=== PATIENT | female | born 1960 | race Caucasian/White ===

== ENCOUNTER 2023-06-02 09:58 | Inpatient (IN) | payer MEDICAID ==
[~2023-06-02] VITALS: Ht 167.6 cm; Wt 92.7 kg
[2023-06-02] VITALS (20 sets, daily range): BP systolic 68–159; PULSE 73–101; RESP 20–25; TEMP 96.9–98.1; O2SAT 91–100
[2023-06-02] MEDS ORDERED: ROCURONIUM BROMIDE 10 MG/ML (ZEMURON) IV ONE (09:59)
[2023-06-02] MEDS ORDERED: SUCCINYLCHOLINE CHLORIDE 20 MG/ML(QUELICIN) IVP ONE (09:59)
[2023-06-02] MEDS ORDERED: NALOXONE HCL 2 MG/2 ML SYR ONE (10:28)
[2023-06-02] MEDS ORDERED: PROPOFOL DRIP 100 ML IV ONE (10:30)
[2023-06-02] MEDS ORDERED: VECURONIUM BROMIDE 10 MG/VIAL (NORCURON) IVP ONE (10:30)
[2023-06-02] MEDS ORDERED: fentaNYL CITRATE/PF 100 MCG/2 ML AMP IVP ONE (10:30)
[2023-06-02] MEDS ORDERED: ETOMIDATE 20 MG/ 10 ML VIAL (AMIDATE) IVP ONE (10:30)
[2023-06-02] MEDS ORDERED: NOREPINEPHRINE BITARTRATE 4 MG in NS 246 ML IV ONE (11:00)
[2023-06-02] MEDS ORDERED: NACL 0.9% 3,000 ML IV ONE (11:00)
[2023-06-02 11:03] LABS: BASOPHILS % (AUTO) 0.1 % (0.0-2.0); HEMOGLOBIN 16.7 g/dL (12.0-16.0); LYMPHOCYTES # (AUTO) 0.2 K/uL (1.0-5.5); LYMPHOCYTES % (AUTO) 1.7 % (20.5-51.5); MEAN CORPUSCULAR HEMOGLOBIN 31 pg (27-31); MEAN CORPUSCULAR HGB CONC 31 % (32-36); MEAN CORPUSCULAR VOLUME 102 fL (79.0-98.0); MONOCYTES # (AUTO) 0.5 K/uL (0.0-1.0); MONOCYTES % (AUTO) 3.7 % (1.7-9.3); NEUTROPHILS # (AUTO) 13.4 K/uL (1.8-7.7); NEUTROPHILS % (AUTO) 94.5 % (40.0-70.0); PLATELET COUNT (AUTO) 72 K/uL (130-430); RED BLOOD CELL COUNT(AUTO) 5.31 MIL/uL (4.2-6.2); RED CELL DISTRIBUTION WIDTH 15.1 % (9.0-15.0); WHITE BLOOD COUNT (AUTO) 14.2 K/uL (4.8-10.8)
[2023-06-02 11:19] LABS: INR 1.3 (0.8-1.2); PROTHROMBIN TIME 13.4 SECS (9.5-12.5)
[2023-06-02 11:20] LABS: ANION GAP 11 (5-15); CALCIUM 8.8 mg/dL (8.4-11.0); CARBON DIOXIDE 27 mmol/L (23-29); CHLORIDE 98 mmol/L (98-107); CREATININE 1.57 mg/dL (0.55-1.30); GFR AFRICAN AMERICAN 43 mL/min (>90); GLUCOSE 93 mg/dL (74-106); POTASSIUM 3.6 mmol/L (3.5-5.1); SODIUM SERUM 136 mmol/L (136-145); UREA NITROGEN, BLOOD 25 mg/dL (8-21)
[2023-06-02 11:20] LABS: ABG O2 SAT% ESTIMATE 91.8 % (94.0-100.0); BLOOD GAS BASE EXCESS -5.1 mmol/L (-3.0-3.0); BLOOD GAS HCO3 22.4 mmol/L (21.0-27.0); BLOOD GAS PCO2 51.1 mmHg (35.0-45.0); BLOOD GAS PO2 71.4 mmHg (75.0-100.0)
[2023-06-02 11:21] LABS: ALLEN'S TEST POSITIVE (P)
[2023-06-02 11:21] LABS: GFR NON AFRICAN-AMERICAN 35 mL/min (>90)
[2023-06-02 11:39] LABS: ANISOCYTOSIS 1+
[2023-06-02 11:51] LABS: ALANINE AMINOTRANSFERASE 30 U/L (12-78); ALBUMIN 2.9 g/dL (3.4-4.8); ASPARTATE AMINOTRANSFERASE 87 U/L (10-37); CREATINE KINASE, TOTAL 1282 U/L (26-192); SALICYLATE 5 mg/dL (3-30); TOTAL BILIRUBIN 0.3 mg/dL (0.0-1.0); TOTAL PROTEIN, SERUM 6.4 g/dL (6.4-8.3)
[2023-06-02 11:54] LABS: ACETAMINOPHEN < 1 ug/mL (1-30); ALCOHOL, BLOOD < 3 mg/dL (<10)
[2023-06-02 11:56] LABS: ACETONE, SERUM NEGATIVE (NEGATIVE)
[2023-06-02] MEDS ORDERED: AZITHROMYCIN 500 MG in NS 250 ML IV SCH (12:15)
[2023-06-02 12:21] LABS: CREATINE KINASE MB 38.9 ng/mL (0-3.6)
[2023-06-02] MEDS: D5/0.45 NS 1,000 ML IV SCH (13:00)
[2023-06-02] MEDS ORDERED: MORPHINE 2 MG/ML INJ. SYRINGE IVP PRN (16:00)
[2023-06-02] MEDS ORDERED: NALOXONE HCL 0.4 MG/ML AMP (NARCAN) IVP PRN (16:00)
[2023-06-02] MEDS ORDERED: AZITHROMYCIN 500 MG in NS 250 ML IV ONE (16:00)
[2023-06-02] MEDS: ALBUTEROL SULFATE 0.083% 2.5 MG/3 ML VIAL.NEB INH SCH ×2 (19:45→23:15)
[2023-06-02] MEDS: IPRATROPIUM BROM 0.5 MG/2.5 ML VIAL.NEB (ATROVENT) INH SCH ×2 (19:45→23:15)
[2023-06-02 19:54] LABS: BARBITURATE, URINE NEGATIVE (NEG <=200); BENZODIAZEPINE, URINE NEGATIVE (NEG <=150); CANNABINOID, URINE NEGATIVE (NEG <=50); COCAINE, URINE NEGATIVE (NEG <=150); METHAMPHETAMINES SCREEN,URINE NEGATIVE (NEG <=500); OPIATE, URINE NEGATIVE (NEG <=100); PHENCYCLIDINE SCREEN,URINE NEGATIVE (NEG <=25); UR TRICYCLIC ANTIDEPRESSANTS NEGATIVE (NEG <=300); URINE AMPHETAMINE NEGATIVE (NEG <=500); URINE METHADONE NEGATIVE (NEG <=200); URINE OXYCODONE SCREEN NEGATIVE (NEG <=100); URINE PROPOXYPHENE SCREEN NEGATIVE (NEG <=300)
[2023-06-02 19:58] LABS: BILIRUBIN,URINE 1+ (NEGATIVE); BLOOD, URINE NEGATIVE (NEGATIVE); CLARITY/URINE CLEAR (CLEAR); COLOR,URINE YELLOW (YELLOW); GLUCOSE,URINE NEGATIVE (NEGATIVE); KETONES,URINE NEGATIVE (NEGATIVE); LEUKOCYTE ESTERASE ,URINE NEGATIVE (NEGATIVE); NITRITE, URINE NEGATIVE (NEGATIVE); PROTEIN URINE 1+ (NEGATIVE)
[2023-06-02 20:49] LABS: BACTERIA,URINE None Seen /HPF (None Seen)
[2023-06-02] MEDS: levETIRAcetam 500 MG IV PREMIX 100 ML IV SCH (21:21)
[2023-06-02] MEDS: CEFEPIME 2 GM in D5W 100 ML IV SCH (22:35)
[2023-06-03] VITALS (38 sets, daily range): BP systolic 95–122; PULSE 68–84; RESP 15–20; TEMP 96.8–98.6; O2SAT 90–96
[2023-06-03] MEDS: D5/0.45 NS 1,000 ML IV SCH ×3 (00:19→20:28)
[2023-06-03] MEDS: ALBUTEROL SULFATE 0.083% 2.5 MG/3 ML VIAL.NEB INH SCH ×2 (03:20→07:22)
[2023-06-03] MEDS: IPRATROPIUM BROM 0.5 MG/2.5 ML VIAL.NEB (ATROVENT) INH SCH ×2 (03:21→07:22)
[2023-06-03 06:20] LABS: ALBUMIN 2.3 g/dL (3.4-4.8); CALCIUM 8.4 mg/dL (8.4-11.0); CREATININE 0.91 mg/dL (0.55-1.30); PHOSPHORUS 2.7 mg/dL (2.7-4.5); POTASSIUM 3.7 mmol/L (3.5-5.1); TOTAL BILIRUBIN 0.3 mg/dL (0.0-1.0)
[2023-06-03] MEDS: PROPOFOL DRIP 100 ML IV PRN (06:36)
[2023-06-03 07:05] LABS: BASOPHILS # (AUTO) 0.2 K/uL (0.0-0.2); BASOPHILS % (AUTO) 1.1 % (0.0-2.0); HEMATOCRIT 51.2 % (36-48); LYMPHOCYTES # (AUTO) 0.4 K/uL (1.0-5.5); MEAN CORPUSCULAR HEMOGLOBIN 32 pg (27-31); MEAN CORPUSCULAR HGB CONC 31 % (32-36); MEAN CORPUSCULAR VOLUME 101 fL (79.0-98.0); MONOCYTES # (AUTO) 0.5 K/uL (0.0-1.0); MONOCYTES % (AUTO) 3.3 % (1.7-9.3); NEUTROPHILS # (AUTO) 12.8 K/uL (1.8-7.7); NEUTROPHILS % (AUTO) 92.6 % (40.0-70.0); PLATELET COUNT (AUTO) 71 K/uL (130-430); RED BLOOD CELL COUNT(AUTO) 5.08 MIL/uL (4.2-6.2); RED CELL DISTRIBUTION WIDTH 14.9 % (9.0-15.0); WHITE BLOOD COUNT (AUTO) 13.8 K/uL (4.8-10.8)
[2023-06-03 08:10] LABS: CKMB RELATIVE INDEX 2.2 (0.0-2.9); CREATINE KINASE MB 25.1 ng/mL (0-3.6)
[2023-06-03 08:36] LABS: TOTAL PROTEIN, SERUM 5.4 g/dL (6.4-8.3)
[2023-06-03] MEDS: levETIRAcetam 500 MG IV PREMIX 100 ML IV SCH ×2 (08:38→20:28)
[2023-06-03] MEDS: CEFEPIME 2 GM in D5W 100 ML IV SCH ×2 (09:34→21:02)
[2023-06-03 09:52] LABS: ALLEN'S TEST POSITIVE (P); BLOOD GAS BASE EXCESS 1.6 mmol/L (-3.0-3.0); BLOOD GAS HCO3 26.5 mmol/L (21.0-27.0); BLOOD GAS PCO2 42.5 mmHg (35.0-45.0); BLOOD GAS PH 7.412 (7.350-7.450); BLOOD GAS PO2 61.9 mmHg (75.0-100.0)
[2023-06-03 11:54] LABS: ABG O2 SAT% ESTIMATE 93.7 % (94.0-100.0); BLOOD GAS BASE EXCESS 1.1 mmol/L (-3.0-3.0); BLOOD GAS HCO3 23.5 mmol/L (21.0-27.0); BLOOD GAS PCO2 31.6 mmHg (35.0-45.0); BLOOD GAS PO2 62.1 mmHg (75.0-100.0)
[2023-06-03 12:00] LABS: ALLEN'S TEST POSITIVE (P)
[2023-06-03] MEDS: IPRATROPIUM/ALBUTEROL SULFATE 3 ML AMPUL.NEB (DUONEB) INH SCH ×2 (13:15→19:50)
[2023-06-03] MEDS ORDERED: ASPIRIN 81 MG TAB.CHEW PO ONE (14:45)
[2023-06-03] MEDS ORDERED: cefTRIAXone 1 GM in D5W 50 ML IV SCH (15:00)
[2023-06-03] MEDS: AZITHROMYCIN 500 MG in NS 250 ML IV SCH (16:36)
[2023-06-04] VITALS (35 sets, daily range): BP systolic 100–146; PULSE 53–100; RESP 12–27; TEMP 97.6–99.2; O2SAT 87–92
[2023-06-04] MEDS: PROPOFOL DRIP 100 ML IV PRN ×2 (00:08→11:40)
[2023-06-04] MEDS: IPRATROPIUM/ALBUTEROL SULFATE 3 ML AMPUL.NEB (DUONEB) INH SCH ×4 (00:55→19:37)
[2023-06-04 05:36] LABS: BASOPHILS % (AUTO) 0.1 % (0.0-2.0); EOSINOPHILS % (AUTO) 0.1 % (0.0-4.0); HEMATOCRIT 49.6 % (36-48); HEMOGLOBIN 15.9 g/dL (12.0-16.0); LYMPHOCYTES # (AUTO) 0.6 K/uL (1.0-5.5); LYMPHOCYTES % (AUTO) 8.1 % (20.5-51.5); MEAN CORPUSCULAR HEMOGLOBIN 32 pg (27-31); MEAN CORPUSCULAR HGB CONC 32 % (32-36); MEAN CORPUSCULAR VOLUME 99 fL (79.0-98.0); MONOCYTES # (AUTO) 0.2 K/uL (0.0-1.0); MONOCYTES % (AUTO) 3.3 % (1.7-9.3); NEUTROPHILS # (AUTO) 6.4 K/uL (1.8-7.7); NEUTROPHILS % (AUTO) 88.4 % (40.0-70.0); PLATELET COUNT (AUTO) 75 K/uL (130-430); RED BLOOD CELL COUNT(AUTO) 4.99 MIL/uL (4.2-6.2); RED CELL DISTRIBUTION WIDTH 14.7 % (9.0-15.0); WHITE BLOOD COUNT (AUTO) 7.3 K/uL (4.8-10.8)
[2023-06-04] MEDS: D5/0.45 NS 1,000 ML IV SCH ×2 (05:45→14:44)
[2023-06-04 05:52] LABS: ERYTHROCYTE SEDIMENTATION RATE 11 MM/HR (0-20)
[2023-06-04 07:02] LABS: CREATININE 0.63 mg/dL (0.55-1.30); POTASSIUM 3.4 mmol/L (3.5-5.1)
[2023-06-04 08:08] LABS: CKMB RELATIVE INDEX 0.3 (0.0-2.9)
[2023-06-04] MEDS: ASPIRIN 81 MG TAB.CHEW PO SCH (08:30)
[2023-06-04] MEDS: levETIRAcetam 500 MG IV PREMIX 100 ML IV SCH ×2 (08:30→20:43)
[2023-06-04] MEDS: CEFEPIME 2 GM in D5W 100 ML IV SCH ×2 (09:08→21:55)
[2023-06-04] MEDS ORDERED: FENTANYL CITRATE-0.9 % NACL/PF 100 ML IV PRN (10:15)
[2023-06-04] MEDS: METHYLPREDNISOLONE SOD SUCC 40 MG/ML VIAL IVP SCH ×3 (12:56→23:34)
[2023-06-04] MEDS: MIDAZOLAM IN NACL,ISO-OSMOT/PF 100 ML IV PRN (12:58)
[2023-06-04] MEDS: AZITHROMYCIN 500 MG in NS 250 ML IV SCH (17:19)
[2023-06-04] MEDS: VANCOMYCIN HCL 1,000 MG in NS 250 ML IV SCH (18:32)
[2023-06-04] MEDS: FUROSEMIDE 20 MG/2 ML VIAL IVP SCH (20:44)
[2023-06-05] VITALS (30 sets, daily range): BP systolic 125–158; PULSE 43–76; RESP 18–22; TEMP 97.5–98.8; O2SAT 88–94
[2023-06-05] MEDS: D5/0.45 NS 1,000 ML IV SCH ×3 (01:23→16:38)
[2023-06-05] MEDS: IPRATROPIUM/ALBUTEROL SULFATE 3 ML AMPUL.NEB (DUONEB) INH SCH ×4 (01:46→19:41)
[2023-06-05] MEDS: PROPOFOL DRIP 100 ML IV PRN (03:06)
[2023-06-05] MEDS ORDERED: ATROPINE SULFATE 1 MG/10 ML SYRINGE IVP PRN (04:45)
[2023-06-05] MEDS: VANCOMYCIN HCL 1,000 MG in NS 250 ML IV SCH ×2 (05:24→18:01)
[2023-06-05] MEDS: METHYLPREDNISOLONE SOD SUCC 40 MG/ML VIAL IVP SCH ×4 (05:24→23:42)
[2023-06-05 06:35] LABS: BASOPHILS % (AUTO) 0.2 % (0.0-2.0); HEMATOCRIT 51.8 % (36-48); HEMOGLOBIN 16.6 g/dL (12.0-16.0); LYMPHOCYTES # (AUTO) 0.4 K/uL (1.0-5.5); LYMPHOCYTES % (AUTO) 9.6 % (20.5-51.5); MEAN CORPUSCULAR HEMOGLOBIN 32 pg (27-31); MEAN CORPUSCULAR HGB CONC 32 % (32-36); MEAN CORPUSCULAR VOLUME 99 fL (79.0-98.0); MONOCYTES # (AUTO) 0.2 K/uL (0.0-1.0); MONOCYTES % (AUTO) 4.9 % (1.7-9.3); NEUTROPHILS # (AUTO) 3.8 K/uL (1.8-7.7); NEUTROPHILS % (AUTO) 85.3 % (40.0-70.0); PLATELET COUNT (AUTO) 51 K/uL (130-430); RED BLOOD CELL COUNT(AUTO) 5.22 MIL/uL (4.2-6.2); RED CELL DISTRIBUTION WIDTH 14.7 % (9.0-15.0); WHITE BLOOD COUNT (AUTO) 4.5 K/uL (4.8-10.8)
[2023-06-05 06:58] LABS: CALCIUM 7.6 mg/dL (8.4-11.0); CREATININE 0.58 mg/dL (0.55-1.30); POTASSIUM 3.1 mmol/L (3.5-5.1)
[2023-06-05 07:47] LABS: ERYTHROCYTE SEDIMENTATION RATE 17 MM/HR (0-20)
[2023-06-05] MEDS ORDERED: amLODIPine BESYLATE 10 MG TABLET ONE (08:01)
[2023-06-05] MEDS: levETIRAcetam 500 MG IV PREMIX 100 ML IV SCH ×2 (08:14→20:28)
[2023-06-05] MEDS: ASPIRIN 81 MG TAB.CHEW PO SCH (08:23)
[2023-06-05] MEDS: FUROSEMIDE 20 MG/2 ML VIAL IVP SCH ×2 (08:24→20:30)
[2023-06-05 08:30] LABS: CKMB RELATIVE INDEX 0.3 (0.0-2.9)
[2023-06-05] MEDS: CEFEPIME 2 GM in D5W 100 ML IV SCH ×2 (09:20→20:29)
[2023-06-05] MEDS ORDERED: POTASSIUM CHLORIDE 20 MEQ/PKT PACKET PO ONE (10:45)
[2023-06-05] MEDS: LORazepam 2 MG/ML VIAL IVP PRN ×2 (12:49→22:34)
[2023-06-05] MEDS: AZITHROMYCIN 500 MG in NS 250 ML IV SCH (16:34)
[2023-06-06] VITALS (34 sets, daily range): BP systolic 123–170; PULSE 42–74; RESP 20–30; TEMP 97.7–98.5; O2SAT 91–100
[2023-06-06] MEDS: IPRATROPIUM/ALBUTEROL SULFATE 3 ML AMPUL.NEB (DUONEB) INH SCH ×4 (01:00→20:01)
[2023-06-06] MEDS: MORPHINE 4 MG INJ. 4 MG/ML VIAL IVP PRN (02:21)
[2023-06-06 04:44] LABS: ERYTHROCYTE SEDIMENTATION RATE 8 MM/HR (0-20)
[2023-06-06 05:19] LABS: ALBUMIN 2.3 g/dL (3.4-4.8); CALCIUM 8.7 mg/dL (8.4-11.0); CREATININE 0.55 mg/dL (0.55-1.30); POTASSIUM 3.2 mmol/L (3.5-5.1); TOTAL BILIRUBIN 0.5 mg/dL (0.0-1.0); TOTAL PROTEIN, SERUM 5.8 g/dL (6.4-8.3)
[2023-06-06] MEDS: VANCOMYCIN HCL 1,000 MG in NS 250 ML IV SCH ×2 (05:43→18:23)
[2023-06-06] MEDS: METHYLPREDNISOLONE SOD SUCC 40 MG/ML VIAL IVP SCH ×3 (05:44→20:58)
[2023-06-06 06:00] LABS: BASOPHILS % (AUTO) 0.2 % (0.0-2.0); HEMOGLOBIN 16.4 g/dL (12.0-16.0); LYMPHOCYTES # (AUTO) 0.7 K/uL (1.0-5.5); LYMPHOCYTES % (AUTO) 8.4 % (20.5-51.5); MEAN CORPUSCULAR HEMOGLOBIN 31 pg (27-31); MEAN CORPUSCULAR HGB CONC 32 % (32-36); MEAN CORPUSCULAR VOLUME 99 fL (79.0-98.0); MONOCYTES # (AUTO) 0.8 K/uL (0.0-1.0); MONOCYTES % (AUTO) 9.8 % (1.7-9.3); NEUTROPHILS # (AUTO) 6.4 K/uL (1.8-7.7); NEUTROPHILS % (AUTO) 81.6 % (40.0-70.0); PLATELET COUNT (AUTO) 69 K/uL (130-430); RED BLOOD CELL COUNT(AUTO) 5.24 MIL/uL (4.2-6.2); RED CELL DISTRIBUTION WIDTH 14.4 % (9.0-15.0); WHITE BLOOD COUNT (AUTO) 7.9 K/uL (4.8-10.8)
[2023-06-06] MEDS: D5/0.45 NS 1,000 ML IV SCH ×2 (07:00→17:00)
[2023-06-06] MEDS: MIDAZOLAM IN NACL,ISO-OSMOT/PF 100 ML IV PRN ×2 (08:09→20:44)
[2023-06-06] MEDS ORDERED: POTASSIUM CHLORIDE 20 MEQ/PKT PACKET PO ONE (08:45)
[2023-06-06] MEDS: CEFEPIME 2 GM in D5W 100 ML IV SCH ×2 (09:31→20:57)
[2023-06-06] MEDS: levETIRAcetam 500 MG IV PREMIX 100 ML IV SCH ×2 (09:32→20:56)
[2023-06-06] MEDS: ASPIRIN 81 MG TAB.CHEW PO SCH (09:33)
[2023-06-06] MEDS: FUROSEMIDE 20 MG/2 ML VIAL IVP SCH ×2 (09:36→20:58)
[2023-06-06 09:58] LABS: ABG O2 SAT% ESTIMATE 93.6 % (94.0-100.0); BLOOD GAS HCO3 28.4 mmol/L (21.0-27.0); BLOOD GAS PH 7.365 (7.350-7.450); BLOOD GAS PO2 71.2 mmHg (75.0-100.0)
[2023-06-06 10:10] LABS: BLOOD GAS PCO2 50.8 mmHg (35.0-45.0)
[2023-06-06 10:11] LABS: ALLEN'S TEST POSITIVE (P)
[2023-06-06] MEDS: LORazepam 2 MG/ML VIAL IVP PRN (10:14)
[2023-06-06 15:17] LABS: VANCOMYCIN,TROUGH 11.4 ug/mL (10.0-20.0)
[2023-06-06] MEDS: AZITHROMYCIN 500 MG in NS 250 ML IV SCH (16:13)
[2023-06-06] MEDS ORDERED: POTASSIUM CHLORIDE 20 MEQ/PKT PACKET NG ONE (17:15)
[2023-06-07] VITALS (30 sets, daily range): BP systolic 133–169; PULSE 20–73; RESP 20–29; TEMP 97.8–100.1; O2SAT 90–99
[2023-06-07] MEDS: IPRATROPIUM/ALBUTEROL SULFATE 3 ML AMPUL.NEB (DUONEB) INH SCH ×4 (01:14→19:38)
[2023-06-07] MEDS: D5/0.45 NS 1,000 ML IV SCH ×2 (03:00→13:06)
[2023-06-07] MEDS: VANCOMYCIN HCL 1,000 MG in NS 250 ML IV SCH ×2 (05:29→18:54)
[2023-06-07 05:59] LABS: ERYTHROCYTE SEDIMENTATION RATE 5 MM/HR (0-20)
[2023-06-07 06:08] LABS: BASOPHILS % (AUTO) 0.1 % (0.0-2.0); HEMATOCRIT 49.2 % (36-48); HEMOGLOBIN 15.7 g/dL (12.0-16.0); LYMPHOCYTES # (AUTO) 0.7 K/uL (1.0-5.5); LYMPHOCYTES % (AUTO) 7.6 % (20.5-51.5); MEAN CORPUSCULAR HEMOGLOBIN 32 pg (27-31); MEAN CORPUSCULAR HGB CONC 32 % (32-36); MEAN CORPUSCULAR VOLUME 100 fL (79.0-98.0); MONOCYTES % (AUTO) 10.7 % (1.7-9.3); NEUTROPHILS # (AUTO) 7.4 K/uL (1.8-7.7); NEUTROPHILS % (AUTO) 81.6 % (40.0-70.0); PLATELET COUNT (AUTO) 100 K/uL (130-430); RED BLOOD CELL COUNT(AUTO) 4.95 MIL/uL (4.2-6.2); RED CELL DISTRIBUTION WIDTH 14.6 % (9.0-15.0)
[2023-06-07 06:40] LABS: ALBUMIN 2.1 g/dL (3.4-4.8); CALCIUM 8.5 mg/dL (8.4-11.0); CREATININE 0.51 mg/dL (0.55-1.30); POTASSIUM 3.7 mmol/L (3.5-5.1); TOTAL BILIRUBIN 0.4 mg/dL (0.0-1.0); TOTAL PROTEIN, SERUM 5.8 g/dL (6.4-8.3)
[2023-06-07] MEDS: ASPIRIN 81 MG TAB.CHEW PO SCH (08:24)
[2023-06-07] MEDS: levETIRAcetam 500 MG IV PREMIX 100 ML IV SCH ×2 (09:02→20:25)
[2023-06-07] MEDS: FUROSEMIDE 20 MG/2 ML VIAL IVP SCH ×2 (09:04→20:26)
[2023-06-07] MEDS: METHYLPREDNISOLONE SOD SUCC 40 MG/ML VIAL IVP SCH ×2 (09:04→20:27)
[2023-06-07] MEDS: CEFEPIME 2 GM in D5W 100 ML IV SCH (09:30)
[2023-06-07] MEDS ORDERED: ACETAMINOPHEN 650 MG/20.3 ML UDC GT PRN (11:15)
[2023-06-07] MEDS ORDERED: ACETAMINOPHEN 650 MG/20.3 ML UDC ONE (11:16)
[2023-06-07 14:27] LABS: ABG O2 SAT% ESTIMATE 95.3 % (94.0-100.0); ALLEN'S TEST POSITIVE (P); BLOOD GAS BASE EXCESS 3.4 mmol/L (-3.0-3.0); BLOOD GAS HCO3 29.7 mmol/L (21.0-27.0); BLOOD GAS PCO2 51.4 mmHg (35.0-45.0); BLOOD GAS PH 7.379 (7.350-7.450); BLOOD GAS PO2 78.8 mmHg (75.0-100.0)
[2023-06-07] MEDS ORDERED: iohexoL 350 mgI/mL, 100 ML INFUS..BTL IV ONE (16:37)
[2023-06-07] MEDS: AZITHROMYCIN 500 MG in NS 250 ML IV SCH (17:30)
[2023-06-07] MEDS: MIDAZOLAM IN NACL,ISO-OSMOT/PF 100 ML IV PRN (20:39)
[2023-06-08] VITALS (33 sets, daily range): BP systolic 102–175; PULSE 42–70; RESP 18–28; TEMP 97.8–98.9; O2SAT 96–100
[2023-06-08] MEDS: D5/0.45 NS 1,000 ML IV SCH ×4 (00:14→21:59)
[2023-06-08] MEDS: MORPHINE 4 MG INJ. 4 MG/ML VIAL IVP PRN (00:15)
[2023-06-08] MEDS: IPRATROPIUM/ALBUTEROL SULFATE 3 ML AMPUL.NEB (DUONEB) INH SCH ×3 (01:19→19:45)
[2023-06-08] MEDS: hydrALAZINE HCL 20 MG/ML VIAL IVP PRN (02:20)
[2023-06-08 05:02] LABS: BASOPHILS % (AUTO) 0.2 % (0.0-2.0); EOSINOPHILS # (AUTO) 0.1 K/uL (0.0-0.4); EOSINOPHILS % (AUTO) 0.7 % (0.0-4.0); HEMATOCRIT 48.4 % (36-48); HEMOGLOBIN 15.5 g/dL (12.0-16.0); LYMPHOCYTES # (AUTO) 0.6 K/uL (1.0-5.5); LYMPHOCYTES % (AUTO) 8.6 % (20.5-51.5); MEAN CORPUSCULAR HEMOGLOBIN 32 pg (27-31); MEAN CORPUSCULAR HGB CONC 32 % (32-36); MEAN CORPUSCULAR VOLUME 99 fL (79.0-98.0); MONOCYTES # (AUTO) 0.4 K/uL (0.0-1.0); MONOCYTES % (AUTO) 5.9 % (1.7-9.3); NEUTROPHILS # (AUTO) 6.4 K/uL (1.8-7.7); NEUTROPHILS % (AUTO) 84.6 % (40.0-70.0); PLATELET COUNT (AUTO) 122 K/uL (130-430); RED CELL DISTRIBUTION WIDTH 14.4 % (9.0-15.0); WHITE BLOOD COUNT (AUTO) 7.5 K/uL (4.8-10.8)
[2023-06-08 05:48] LABS: ALBUMIN 2.4 g/dL (3.4-4.8); CALCIUM 8.8 mg/dL (8.4-11.0); CREATININE 0.6 mg/dL (0.55-1.30); TOTAL BILIRUBIN 0.4 mg/dL (0.0-1.0); TOTAL PROTEIN, SERUM 5.4 g/dL (6.4-8.3)
[2023-06-08] MEDS: VANCOMYCIN HCL 1,000 MG in NS 250 ML IV SCH ×2 (06:08→17:54)
[2023-06-08] MEDS: METHYLPREDNISOLONE SOD SUCC 40 MG/ML VIAL IVP SCH ×2 (09:38→20:11)
[2023-06-08] MEDS: ASPIRIN 81 MG TAB.CHEW PO SCH (09:39)
[2023-06-08] MEDS: FUROSEMIDE 20 MG/2 ML VIAL IVP SCH ×2 (09:39→20:12)
[2023-06-08] MEDS: levETIRAcetam 500 MG IV PREMIX 100 ML IV SCH ×2 (09:40→20:11)
[2023-06-08] MEDS: MIDAZOLAM IN NACL,ISO-OSMOT/PF 100 ML IV PRN (13:18)
[2023-06-08] MEDS ORDERED: iohexoL 350 mgI/mL, 100 ML INFUS..BTL IV ONE (17:51)
[2023-06-09] VITALS (35 sets, daily range): BP systolic 115–180; PULSE 46–76; RESP 16–26; TEMP 97.5–98.2; O2SAT 93–100
[2023-06-09] MEDS: MIDAZOLAM IN NACL,ISO-OSMOT/PF 100 ML IV PRN ×2 (00:29→11:20)
[2023-06-09] MEDS: IPRATROPIUM/ALBUTEROL SULFATE 3 ML AMPUL.NEB (DUONEB) INH SCH ×4 (01:00→19:40)
[2023-06-09] MEDS ORDERED: iohexoL 350 mgI/mL, 100 ML INFUS..BTL IV ONE (02:14)
[2023-06-09] MEDS: VANCOMYCIN HCL 1,000 MG in NS 250 ML IV SCH ×2 (05:02→17:19)
[2023-06-09 05:14] LABS: BASOPHILS % (AUTO) 0.1 % (0.0-2.0); EOSINOPHILS % (AUTO) 0.7 % (0.0-4.0); HEMATOCRIT 49.8 % (36-48); HEMOGLOBIN 15.6 g/dL (12.0-16.0); LYMPHOCYTES # (AUTO) 0.6 K/uL (1.0-5.5); MEAN CORPUSCULAR HEMOGLOBIN 31 pg (27-31); MEAN CORPUSCULAR HGB CONC 31 % (32-36); MEAN CORPUSCULAR VOLUME 100 fL (79.0-98.0); MONOCYTES # (AUTO) 0.5 K/uL (0.0-1.0); NEUTROPHILS % (AUTO) 81.2 % (40.0-70.0); PLATELET COUNT (AUTO) 175 K/uL (130-430); RED BLOOD CELL COUNT(AUTO) 4.99 MIL/uL (4.2-6.2); RED CELL DISTRIBUTION WIDTH 14.4 % (9.0-15.0); WHITE BLOOD COUNT (AUTO) 6.1 K/uL (4.8-10.8)
[2023-06-09 05:40] LABS: CALCIUM 8.9 mg/dL (8.4-11.0); CREATININE 0.43 mg/dL (0.55-1.30); POTASSIUM 3.8 mmol/L (3.5-5.1)
[2023-06-09 05:51] LABS: ERYTHROCYTE SEDIMENTATION RATE 7 MM/HR (0-20)
[2023-06-09] MEDS: FUROSEMIDE 20 MG/2 ML VIAL IVP SCH ×2 (08:29→20:08)
[2023-06-09] MEDS: ASPIRIN 81 MG TAB.CHEW PO SCH (08:29)
[2023-06-09] MEDS: METHYLPREDNISOLONE SOD SUCC 40 MG/ML VIAL IVP SCH ×2 (08:29→20:09)
[2023-06-09] MEDS: levETIRAcetam 500 MG IV PREMIX 100 ML IV SCH ×2 (08:30→20:09)
[2023-06-09] MEDS ORDERED: FUROSEMIDE 20 MG/2 ML VIAL IVP ONE (13:45)
[2023-06-09] MEDS: D5/0.45 NS 1,000 ML IV SCH ×2 (14:37→20:10)
[2023-06-09] MEDS: hydrALAZINE HCL 20 MG/ML VIAL IVP PRN (17:54)
[2023-06-10] VITALS (33 sets, daily range): BP systolic 111–162; PULSE 42–96; RESP 18–24; TEMP 96.8–98.6; O2SAT 88–99
[2023-06-10] MEDS: IPRATROPIUM/ALBUTEROL SULFATE 3 ML AMPUL.NEB (DUONEB) INH SCH ×4 (01:20→19:45)
[2023-06-10 04:54] LABS: ERYTHROCYTE SEDIMENTATION RATE 7 MM/HR (0-20)
[2023-06-10 05:15] LABS: BASOPHILS % (AUTO) 0.1 % (0.0-2.0); EOSINOPHILS % (AUTO) 0.2 % (0.0-4.0); HEMATOCRIT 52.4 % (36-48); HEMOGLOBIN 16.9 g/dL (12.0-16.0); LYMPHOCYTES # (AUTO) 0.8 K/uL (1.0-5.5); LYMPHOCYTES % (AUTO) 12.1 % (20.5-51.5); MEAN CORPUSCULAR HEMOGLOBIN 32 pg (27-31); MEAN CORPUSCULAR HGB CONC 32 % (32-36); MEAN CORPUSCULAR VOLUME 98 fL (79.0-98.0); MONOCYTES # (AUTO) 0.5 K/uL (0.0-1.0); MONOCYTES % (AUTO) 7.2 % (1.7-9.3); NEUTROPHILS # (AUTO) 5.4 K/uL (1.8-7.7); NEUTROPHILS % (AUTO) 80.4 % (40.0-70.0); PLATELET COUNT (AUTO) 186 K/uL (130-430); RED BLOOD CELL COUNT(AUTO) 5.33 MIL/uL (4.2-6.2); RED CELL DISTRIBUTION WIDTH 14.2 % (9.0-15.0); WHITE BLOOD COUNT (AUTO) 6.7 K/uL (4.8-10.8)
[2023-06-10 05:35] LABS: ALBUMIN 2.4 g/dL (3.4-4.8); CALCIUM 9.3 mg/dL (8.4-11.0); CREATININE 0.53 mg/dL (0.55-1.30); POTASSIUM 3.8 mmol/L (3.5-5.1); TOTAL BILIRUBIN 0.5 mg/dL (0.0-1.0); TOTAL PROTEIN, SERUM 5.9 g/dL (6.4-8.3)
[2023-06-10] MEDS: levETIRAcetam 500 MG IV PREMIX 100 ML IV SCH ×2 (08:31→21:59)
[2023-06-10] MEDS: METHYLPREDNISOLONE SOD SUCC 40 MG/ML VIAL IVP SCH ×2 (08:32→21:59)
[2023-06-10] MEDS: ASPIRIN 81 MG TAB.CHEW PO SCH (08:32)
[2023-06-10] MEDS: FUROSEMIDE 20 MG/2 ML VIAL IVP SCH ×2 (08:32→22:00)
[2023-06-10] MEDS: D5/0.45 NS 1,000 ML IV SCH (08:33)
[2023-06-10] MEDS: MORPHINE 4 MG INJ. 4 MG/ML VIAL IVP PRN (12:55)
[2023-06-11] VITALS (39 sets, daily range): BP systolic 94–171; PULSE 77–90; RESP 16–26; TEMP 97.1–98.9; O2SAT 81–94
[2023-06-11] MEDS: IPRATROPIUM/ALBUTEROL SULFATE 3 ML AMPUL.NEB (DUONEB) INH SCH ×4 (01:05→20:10)
[2023-06-11 05:45] LABS: BASOPHILS % (AUTO) 0.1 % (0.0-2.0); EOSINOPHILS % (AUTO) 0.1 % (0.0-4.0); HEMATOCRIT 54.2 % (36-48); HEMOGLOBIN 17.3 g/dL (12.0-16.0); LYMPHOCYTES # (AUTO) 0.7 K/uL (1.0-5.5); LYMPHOCYTES % (AUTO) 5.5 % (20.5-51.5); MEAN CORPUSCULAR HEMOGLOBIN 32 pg (27-31); MEAN CORPUSCULAR HGB CONC 32 % (32-36); MEAN CORPUSCULAR VOLUME 99 fL (79.0-98.0); MONOCYTES # (AUTO) 0.5 K/uL (0.0-1.0); MONOCYTES % (AUTO) 3.5 % (1.7-9.3); NEUTROPHILS # (AUTO) 11.9 K/uL (1.8-7.7); NEUTROPHILS % (AUTO) 90.8 % (40.0-70.0); PLATELET COUNT (AUTO) 265 K/uL (130-430); RED BLOOD CELL COUNT(AUTO) 5.49 MIL/uL (4.2-6.2); RED CELL DISTRIBUTION WIDTH 14.4 % (9.0-15.0); WHITE BLOOD COUNT (AUTO) 13.1 K/uL (4.8-10.8)
[2023-06-11 05:53] LABS: CALCIUM 9.8 mg/dL (8.4-11.0); CREATININE 0.45 mg/dL (0.55-1.30); POTASSIUM 3.6 mmol/L (3.5-5.1)
[2023-06-11 06:40] LABS: ERYTHROCYTE SEDIMENTATION RATE 14 MM/HR (0-20)
[2023-06-11] MEDS: ASPIRIN 81 MG TAB.CHEW PO SCH (09:23)
[2023-06-11] MEDS: levETIRAcetam 500 MG IV PREMIX 100 ML IV SCH ×2 (09:24→21:28)
[2023-06-11] MEDS: METHYLPREDNISOLONE SOD SUCC 40 MG/ML VIAL IVP SCH ×2 (09:24→21:27)
[2023-06-11] MEDS: FUROSEMIDE 20 MG/2 ML VIAL IVP SCH ×2 (09:24→21:27)
[2023-06-11] MEDS: ONDANSETRON HCL 4 MG/2 ML VIAL IVP PRN (09:42)
[2023-06-12] VITALS (36 sets, daily range): BP systolic 104–162; PULSE 81–104; RESP 15–30; TEMP 97.4–100.8; O2SAT 83–99
[2023-06-12] MEDS: IPRATROPIUM/ALBUTEROL SULFATE 3 ML AMPUL.NEB (DUONEB) INH SCH ×4 (01:38→19:27)
[2023-06-12 06:06] LABS: BASOPHILS % (AUTO) 0.1 % (0.0-2.0); EOSINOPHILS % (AUTO) 0.1 % (0.0-4.0); HEMATOCRIT 52.5 % (36-48); HEMOGLOBIN 16.6 g/dL (12.0-16.0); LYMPHOCYTES % (AUTO) 6.8 % (20.5-51.5); MEAN CORPUSCULAR HEMOGLOBIN 32 pg (27-31); MEAN CORPUSCULAR HGB CONC 32 % (32-36); MEAN CORPUSCULAR VOLUME 100 fL (79.0-98.0); MONOCYTES # (AUTO) 0.7 K/uL (0.0-1.0); MONOCYTES % (AUTO) 4.6 % (1.7-9.3); NEUTROPHILS # (AUTO) 12.9 K/uL (1.8-7.7); NEUTROPHILS % (AUTO) 88.4 % (40.0-70.0); PLATELET COUNT (AUTO) 268 K/uL (130-430); RED BLOOD CELL COUNT(AUTO) 5.27 MIL/uL (4.2-6.2); RED CELL DISTRIBUTION WIDTH 14.4 % (9.0-15.0); WHITE BLOOD COUNT (AUTO) 14.6 K/uL (4.8-10.8)
[2023-06-12 06:10] LABS: CALCIUM 9.4 mg/dL (8.4-11.0); CREATININE 0.47 mg/dL (0.55-1.30); POTASSIUM 4.2 mmol/L (3.5-5.1)
[2023-06-12 07:26] LABS: ERYTHROCYTE SEDIMENTATION RATE 20 MM/HR (0-20)
[2023-06-12] MEDS: METHYLPREDNISOLONE SOD SUCC 40 MG/ML VIAL IVP SCH ×2 (09:09→21:42)
[2023-06-12] MEDS: FUROSEMIDE 20 MG/2 ML VIAL IVP SCH ×2 (09:10→21:41)
[2023-06-12] MEDS: levETIRAcetam 500 MG IV PREMIX 100 ML IV SCH ×2 (09:11→21:40)
[2023-06-12] MEDS: ASPIRIN 81 MG TAB.CHEW PO SCH (11:17)
[2023-06-13] VITALS (35 sets, daily range): BP systolic 101–155; PULSE 77–98; RESP 16–31; TEMP 97.5–100.9; O2SAT 89–97
[2023-06-13] MEDS: IPRATROPIUM/ALBUTEROL SULFATE 3 ML AMPUL.NEB (DUONEB) INH SCH ×4 (01:51→19:36)
[2023-06-13 04:57] LABS: ERYTHROCYTE SEDIMENTATION RATE 19 MM/HR (0-20)
[2023-06-13 06:44] LABS: CALCIUM 9.7 mg/dL (8.4-11.0); CREATININE 0.65 mg/dL (0.55-1.30); TOTAL BILIRUBIN 0.8 mg/dL (0.0-1.0); TOTAL PROTEIN, SERUM 7.1 g/dL (6.4-8.3)
[2023-06-13 06:45] LABS: PHOSPHORUS 4.8 mg/dL (2.7-4.5)
[2023-06-13 07:38] LABS: BASOPHILS % (AUTO) 0.2 % (0.0-2.0); HEMATOCRIT 53.1 % (36-48); HEMOGLOBIN 16.7 g/dL (12.0-16.0); LYMPHOCYTES % (AUTO) 6.3 % (20.5-51.5); MEAN CORPUSCULAR HEMOGLOBIN 32 pg (27-31); MEAN CORPUSCULAR HGB CONC 32 % (32-36); MEAN CORPUSCULAR VOLUME 100 fL (79.0-98.0); MONOCYTES # (AUTO) 0.7 K/uL (0.0-1.0); MONOCYTES % (AUTO) 4.7 % (1.7-9.3); NEUTROPHILS # (AUTO) 13.8 K/uL (1.8-7.7); NEUTROPHILS % (AUTO) 88.8 % (40.0-70.0); PLATELET COUNT (AUTO) 256 K/uL (130-430); RED CELL DISTRIBUTION WIDTH 14.6 % (9.0-15.0); WHITE BLOOD COUNT (AUTO) 15.6 K/uL (4.8-10.8)
[2023-06-13] MEDS: METHYLPREDNISOLONE SOD SUCC 40 MG/ML VIAL IVP SCH ×2 (08:33→21:05)
[2023-06-13] MEDS: ASPIRIN 81 MG TAB.CHEW PO SCH (08:34)
[2023-06-13] MEDS: FUROSEMIDE 20 MG/2 ML VIAL IVP SCH ×2 (08:34→21:05)
[2023-06-13] MEDS: levETIRAcetam 500 MG IV PREMIX 100 ML IV SCH ×2 (08:35→21:06)
[2023-06-13 10:41] LABS: BLOOD GAS PH 7.453 (7.350-7.450)
[2023-06-13 10:42] LABS: ABG O2 SAT% ESTIMATE 96.4 % (94.0-100.0); ALLEN'S TEST POSITIVE (P); BLOOD GAS BASE EXCESS 14.2 mmol/L (-3.0-3.0); BLOOD GAS HCO3 41.2 mmol/L (21.0-27.0); BLOOD GAS PCO2 60.2 mmHg (35.0-45.0); BLOOD GAS PO2 83.2 mmHg (75.0-100.0)
[2023-06-13] MEDS ORDERED: MIDAZOLAM IN NACL,ISO-OSMOT/PF 100 ML IV PRN (10:45)
[2023-06-14] VITALS (34 sets, daily range): BP systolic 116–151; PULSE 70–92; RESP 9–32; TEMP 97.6–98.9; O2SAT 87–97
[2023-06-14] MEDS: IPRATROPIUM/ALBUTEROL SULFATE 3 ML AMPUL.NEB (DUONEB) INH SCH ×4 (01:13→19:32)
[2023-06-14 05:38] LABS: ERYTHROCYTE SEDIMENTATION RATE 17 MM/HR (0-20)
[2023-06-14 05:50] LABS: CALCIUM 9.2 mg/dL (8.4-11.0); CREATININE 0.52 mg/dL (0.55-1.30); POTASSIUM 3.5 mmol/L (3.5-5.1)
[2023-06-14 07:50] LABS: BASOPHILS % (AUTO) 0.1 % (0.0-2.0); EOSINOPHILS % (AUTO) 0.2 % (0.0-4.0); HEMATOCRIT 52.3 % (36-48); HEMOGLOBIN 16.4 g/dL (12.0-16.0); LYMPHOCYTES # (AUTO) 1.3 K/uL (1.0-5.5); LYMPHOCYTES % (AUTO) 9.2 % (20.5-51.5); MEAN CORPUSCULAR HEMOGLOBIN 31 pg (27-31); MEAN CORPUSCULAR HGB CONC 31 % (32-36); MEAN CORPUSCULAR VOLUME 100 fL (79.0-98.0); MONOCYTES # (AUTO) 0.8 K/uL (0.0-1.0); MONOCYTES % (AUTO) 5.2 % (1.7-9.3); NEUTROPHILS # (AUTO) 12.4 K/uL (1.8-7.7); NEUTROPHILS % (AUTO) 85.3 % (40.0-70.0); PLATELET COUNT (AUTO) 211 K/uL (130-430); RED BLOOD CELL COUNT(AUTO) 5.22 MIL/uL (4.2-6.2); RED CELL DISTRIBUTION WIDTH 13.9 % (9.0-15.0); WHITE BLOOD COUNT (AUTO) 14.5 K/uL (4.8-10.8)
[2023-06-14] MEDS: METHYLPREDNISOLONE SOD SUCC 40 MG/ML VIAL IVP SCH ×2 (08:22→20:56)
[2023-06-14] MEDS: ASPIRIN 81 MG TAB.CHEW PO SCH (08:22)
[2023-06-14] MEDS: FUROSEMIDE 20 MG/2 ML VIAL IVP SCH ×2 (08:23→20:56)
[2023-06-14] MEDS: levETIRAcetam 500 MG IV PREMIX 100 ML IV SCH ×2 (09:00→20:56)
[2023-06-14 10:23] LABS: INR 1.2 (0.8-1.2); PROTHROMBIN TIME 12.3 SECS (9.5-12.5)
[2023-06-14] MEDS: ONDANSETRON HCL 4 MG/2 ML VIAL IVP PRN (12:25)
[2023-06-15] VITALS (14 sets, daily range): BP systolic 102–155; PULSE 63–83; RESP 12–28; TEMP 97.5–98.8; O2SAT 90–95
[2023-06-15] MEDS: IPRATROPIUM/ALBUTEROL SULFATE 3 ML AMPUL.NEB (DUONEB) INH SCH ×4 (01:05→20:25)
[2023-06-15 05:22] LABS: ERYTHROCYTE SEDIMENTATION RATE 24 MM/HR (0-20)
[2023-06-15 05:25] LABS: BASOPHILS # (AUTO) 0.1 K/uL (0.0-0.2); BASOPHILS % (AUTO) 0.8 % (0.0-2.0); EOSINOPHILS # (AUTO) 0.2 K/uL (0.0-0.4); EOSINOPHILS % (AUTO) 1.7 % (0.0-4.0); HEMATOCRIT 49.8 % (36-48); HEMOGLOBIN 16.2 g/dL (12.0-16.0); LYMPHOCYTES # (AUTO) 0.8 K/uL (1.0-5.5); LYMPHOCYTES % (AUTO) 7.8 % (20.5-51.5); MEAN CORPUSCULAR HEMOGLOBIN 32 pg (27-31); MEAN CORPUSCULAR HGB CONC 33 % (32-36); MEAN CORPUSCULAR VOLUME 99 fL (79.0-98.0); MONOCYTES # (AUTO) 0.4 K/uL (0.0-1.0); MONOCYTES % (AUTO) 4.1 % (1.7-9.3); NEUTROPHILS # (AUTO) 9.2 K/uL (1.8-7.7); NEUTROPHILS % (AUTO) 85.6 % (40.0-70.0); PLATELET COUNT (AUTO) 198 K/uL (130-430); RED BLOOD CELL COUNT(AUTO) 5.04 MIL/uL (4.2-6.2); WHITE BLOOD COUNT (AUTO) 10.7 K/uL (4.8-10.8)
[2023-06-15 05:54] LABS: CREATININE 0.59 mg/dL (0.55-1.30); POTASSIUM 3.7 mmol/L (3.5-5.1)
[2023-06-15] MEDS: ASPIRIN 81 MG TAB.CHEW PO SCH (08:34)
[2023-06-15] MEDS: levETIRAcetam 500 MG IV PREMIX 100 ML IV SCH ×2 (08:34→20:15)
[2023-06-15] MEDS: METHYLPREDNISOLONE SOD SUCC 40 MG/ML VIAL IVP SCH ×2 (08:34→20:15)
[2023-06-15] MEDS: ONDANSETRON HCL 4 MG/2 ML VIAL IVP PRN (21:24)
[2023-06-16] VITALS (11 sets, daily range): BP systolic 112–139; PULSE 58–76; RESP 17–36; TEMP 97–98; O2SAT 90–99
[2023-06-16] MEDS: IPRATROPIUM/ALBUTEROL SULFATE 3 ML AMPUL.NEB (DUONEB) INH SCH ×4 (02:07→20:29)
[2023-06-16] MEDS: ONDANSETRON HCL 4 MG/2 ML VIAL IVP PRN (02:20)
[2023-06-16] MEDS ORDERED: HYDROcodone/ACETAMIN 5-325 MG TAB (NORCO/ VICODIN) PO PRN (03:45)
[2023-06-16] MEDS ORDERED: HYDROcodone/ACETAMIN 10-325 MG TAB PO PRN (03:45)
[2023-06-16 06:01] LABS: ERYTHROCYTE SEDIMENTATION RATE 2 MM/HR (0-20)
[2023-06-16 06:15] LABS: BASOPHILS % (AUTO) 0.3 % (0.0-2.0); EOSINOPHILS % (AUTO) 0.1 % (0.0-4.0); HEMATOCRIT 48.2 % (36-48); HEMOGLOBIN 15.5 g/dL (12.0-16.0); LYMPHOCYTES # (AUTO) 1.1 K/uL (1.0-5.5); LYMPHOCYTES % (AUTO) 11.2 % (20.5-51.5); MEAN CORPUSCULAR HEMOGLOBIN 32 pg (27-31); MEAN CORPUSCULAR HGB CONC 32 % (32-36); MEAN CORPUSCULAR VOLUME 99 fL (79.0-98.0); MONOCYTES # (AUTO) 0.4 K/uL (0.0-1.0); MONOCYTES % (AUTO) 3.9 % (1.7-9.3); NEUTROPHILS # (AUTO) 8.6 K/uL (1.8-7.7); NEUTROPHILS % (AUTO) 84.5 % (40.0-70.0); PLATELET COUNT (AUTO) 160 K/uL (130-430); RED BLOOD CELL COUNT(AUTO) 4.87 MIL/uL (4.2-6.2); RED CELL DISTRIBUTION WIDTH 13.6 % (9.0-15.0); WHITE BLOOD COUNT (AUTO) 10.1 K/uL (4.8-10.8)
[2023-06-16] MEDS: ACETAMINOPHEN 325 MG TABLET PO PRN (06:56)
[2023-06-16 07:56] LABS: CALCIUM 9.7 mg/dL (8.4-11.0); CREATININE 0.62 mg/dL (0.55-1.30); POTASSIUM 4.2 mmol/L (3.5-5.1)
[2023-06-16] MEDS: ASPIRIN 81 MG TAB.CHEW PO SCH (08:47)
[2023-06-16] MEDS: levETIRAcetam 500 MG IV PREMIX 100 ML IV SCH ×2 (08:47→20:32)
[2023-06-16] MEDS: METHYLPREDNISOLONE SOD SUCC 40 MG/ML VIAL IVP SCH ×2 (08:48→20:26)
[2023-06-16] MEDS ORDERED: FUROSEMIDE 40 MG/4 ML VIAL IVP ONE (09:30)
[2023-06-16] MEDS ORDERED: MIDAZOLAM HCL 5 MG/5 ML VIAL ONE (14:33)
[2023-06-16] MEDS ORDERED: fentaNYL CITRATE/PF 100 MCG/2 ML AMP ONE (14:34)
[2023-06-17] VITALS (10 sets, daily range): BP systolic 105–133; PULSE 62–93; RESP 16–30; TEMP 96–98.3; O2SAT 92–98
[2023-06-17] MEDS: IPRATROPIUM/ALBUTEROL SULFATE 3 ML AMPUL.NEB (DUONEB) INH SCH ×4 (01:18→19:51)
[2023-06-17 05:13] LABS: ERYTHROCYTE SEDIMENTATION RATE 12 MM/HR (0-20)
[2023-06-17 05:18] LABS: BASOPHILS % (AUTO) 0.2 % (0.0-2.0); EOSINOPHILS % (AUTO) 0.2 % (0.0-4.0); HEMATOCRIT 50.5 % (36-48); HEMOGLOBIN 16.3 g/dL (12.0-16.0); LYMPHOCYTES # (AUTO) 1.1 K/uL (1.0-5.5); LYMPHOCYTES % (AUTO) 8.4 % (20.5-51.5); MEAN CORPUSCULAR HEMOGLOBIN 32 pg (27-31); MEAN CORPUSCULAR HGB CONC 32 % (32-36); MEAN CORPUSCULAR VOLUME 98 fL (79.0-98.0); MONOCYTES # (AUTO) 0.7 K/uL (0.0-1.0); MONOCYTES % (AUTO) 5.3 % (1.7-9.3); NEUTROPHILS # (AUTO) 10.8 K/uL (1.8-7.7); NEUTROPHILS % (AUTO) 85.9 % (40.0-70.0); PLATELET COUNT (AUTO) 160 K/uL (130-430); RED BLOOD CELL COUNT(AUTO) 5.16 MIL/uL (4.2-6.2); RED CELL DISTRIBUTION WIDTH 13.4 % (9.0-15.0); WHITE BLOOD COUNT (AUTO) 12.6 K/uL (4.8-10.8)
[2023-06-17 05:45] LABS: ALBUMIN 3.2 g/dL (3.4-4.8); CALCIUM 9.6 mg/dL (8.4-11.0); CREATININE 0.6 mg/dL (0.55-1.30); POTASSIUM 3.5 mmol/L (3.5-5.1); TOTAL BILIRUBIN 1.1 mg/dL (0.0-1.0); TOTAL PROTEIN, SERUM 7.2 g/dL (6.4-8.3)
[2023-06-17] MEDS: ASPIRIN 81 MG TAB.CHEW PO SCH (09:51)
[2023-06-17] MEDS: levETIRAcetam 500 MG IV PREMIX 100 ML IV SCH ×2 (09:52→20:45)
[2023-06-17] MEDS: METHYLPREDNISOLONE SOD SUCC 40 MG/ML VIAL IVP SCH ×2 (09:56→20:45)
[2023-06-17] MEDS: FUROSEMIDE 40 MG/4 ML VIAL IVP SCH (09:57)
[2023-06-17] MEDS ORDERED: HYDROcodone/ACETAMIN 5-325 MG TAB (NORCO/ VICODIN) PO PRN (11:00)
[2023-06-17] MEDS: ACETAMINOPHEN 325 MG TABLET PO PRN (12:39)
[2023-06-18] VITALS (10 sets, daily range): BP systolic 111–122; PULSE 61–106; RESP 16–20; TEMP 97–97.6; O2SAT 93–98
[2023-06-18] MEDS: IPRATROPIUM/ALBUTEROL SULFATE 3 ML AMPUL.NEB (DUONEB) INH SCH ×4 (01:46→19:35)
[2023-06-18 08:09] LABS: BASOPHILS % (AUTO) 0.3 % (0.0-2.0); EOSINOPHILS % (AUTO) 0.4 % (0.0-4.0); HEMATOCRIT 49.9 % (36-48); LYMPHOCYTES # (AUTO) 1.5 K/uL (1.0-5.5); LYMPHOCYTES % (AUTO) 15.1 % (20.5-51.5); MEAN CORPUSCULAR HEMOGLOBIN 32 pg (27-31); MEAN CORPUSCULAR HGB CONC 32 % (32-36); MEAN CORPUSCULAR VOLUME 99 fL (79.0-98.0); MONOCYTES # (AUTO) 0.6 K/uL (0.0-1.0); MONOCYTES % (AUTO) 6.6 % (1.7-9.3); NEUTROPHILS # (AUTO) 7.6 K/uL (1.8-7.7); NEUTROPHILS % (AUTO) 77.6 % (40.0-70.0); PLATELET COUNT (AUTO) 127 K/uL (130-430); RED BLOOD CELL COUNT(AUTO) 5.07 MIL/uL (4.2-6.2); RED CELL DISTRIBUTION WIDTH 13.4 % (9.0-15.0); WHITE BLOOD COUNT (AUTO) 9.8 K/uL (4.8-10.8)
[2023-06-18 08:26] LABS: CALCIUM 8.9 mg/dL (8.4-11.0); CREATININE 0.61 mg/dL (0.55-1.30)
[2023-06-18] MEDS: METHYLPREDNISOLONE SOD SUCC 40 MG/ML VIAL IVP SCH ×2 (08:41→20:46)
[2023-06-18] MEDS: FUROSEMIDE 40 MG/4 ML VIAL IVP SCH (08:41)
[2023-06-18] MEDS: ASPIRIN 81 MG TAB.CHEW PO SCH (08:41)
[2023-06-18] MEDS: levETIRAcetam 500 MG IV PREMIX 100 ML IV SCH ×2 (08:42→20:45)
[2023-06-19] VITALS (10 sets, daily range): BP systolic 105–121; PULSE 61–92; RESP 16–22; TEMP 96.5–98.9; O2SAT 94–100
[2023-06-19] MEDS: IPRATROPIUM/ALBUTEROL SULFATE 3 ML AMPUL.NEB (DUONEB) INH SCH ×4 (01:15→19:25)
[2023-06-19 07:49] LABS: BASOPHILS % (AUTO) 0.1 % (0.0-2.0); EOSINOPHILS % (AUTO) 0.2 % (0.0-4.0); HEMATOCRIT 51.1 % (36-48); HEMOGLOBIN 16.2 g/dL (12.0-16.0); LYMPHOCYTES # (AUTO) 1.5 K/uL (1.0-5.5); LYMPHOCYTES % (AUTO) 14.1 % (20.5-51.5); MEAN CORPUSCULAR HEMOGLOBIN 31 pg (27-31); MEAN CORPUSCULAR HGB CONC 32 % (32-36); MEAN CORPUSCULAR VOLUME 99 fL (79.0-98.0); MONOCYTES # (AUTO) 0.6 K/uL (0.0-1.0); MONOCYTES % (AUTO) 5.7 % (1.7-9.3); NEUTROPHILS # (AUTO) 8.5 K/uL (1.8-7.7); NEUTROPHILS % (AUTO) 79.9 % (40.0-70.0); PLATELET COUNT (AUTO) 136 K/uL (130-430); RED BLOOD CELL COUNT(AUTO) 5.19 MIL/uL (4.2-6.2); RED CELL DISTRIBUTION WIDTH 13.8 % (9.0-15.0); WHITE BLOOD COUNT (AUTO) 10.6 K/uL (4.8-10.8)
[2023-06-19 08:02] LABS: ERYTHROCYTE SEDIMENTATION RATE 7 MM/HR (0-20)
[2023-06-19 08:07] LABS: CALCIUM 9.8 mg/dL (8.4-11.0); CREATININE 0.49 mg/dL (0.55-1.30); POTASSIUM 4.4 mmol/L (3.5-5.1)
[2023-06-19] MEDS: ASPIRIN 81 MG TAB.CHEW PO SCH (09:05)
[2023-06-19] MEDS: FUROSEMIDE 40 MG/4 ML VIAL IVP SCH (09:06)
[2023-06-19] MEDS: levETIRAcetam 500 MG IV PREMIX 100 ML IV SCH ×2 (09:06→22:14)
[2023-06-19] MEDS: METHYLPREDNISOLONE SOD SUCC 40 MG/ML VIAL IVP SCH ×2 (09:06→22:15)
[2023-06-20] VITALS (12 sets, daily range): BP systolic 114–128; PULSE 60–96; RESP 16–19; TEMP 97–98.4; O2SAT 96–99
[2023-06-20] MEDS: IPRATROPIUM/ALBUTEROL SULFATE 3 ML AMPUL.NEB (DUONEB) INH SCH ×4 (01:52→19:50)
[2023-06-20 08:41] LABS: BASOPHILS % (AUTO) 0.2 % (0.0-2.0); EOSINOPHILS % (AUTO) 0.1 % (0.0-4.0); HEMATOCRIT 51.1 % (36-48); HEMOGLOBIN 16.5 g/dL (12.0-16.0); LYMPHOCYTES % (AUTO) 9.1 % (20.5-51.5); MEAN CORPUSCULAR HEMOGLOBIN 32 pg (27-31); MEAN CORPUSCULAR HGB CONC 32 % (32-36); MEAN CORPUSCULAR VOLUME 98 fL (79.0-98.0); MONOCYTES # (AUTO) 0.4 K/uL (0.0-1.0); MONOCYTES % (AUTO) 3.5 % (1.7-9.3); NEUTROPHILS # (AUTO) 9.3 K/uL (1.8-7.7); NEUTROPHILS % (AUTO) 87.1 % (40.0-70.0); PLATELET COUNT (AUTO) 131 K/uL (130-430); RED BLOOD CELL COUNT(AUTO) 5.24 MIL/uL (4.2-6.2); RED CELL DISTRIBUTION WIDTH 13.7 % (9.0-15.0); WHITE BLOOD COUNT (AUTO) 10.6 K/uL (4.8-10.8)
[2023-06-20 08:57] LABS: ERYTHROCYTE SEDIMENTATION RATE 10 MM/HR (0-20)
[2023-06-20] MEDS: levETIRAcetam 500 MG IV PREMIX 100 ML IV SCH (09:37)
[2023-06-20] MEDS: ASPIRIN 81 MG TAB.CHEW PO SCH (09:38)
[2023-06-20] MEDS: FUROSEMIDE 40 MG/4 ML VIAL IVP SCH (09:38)
[2023-06-20 10:04] LABS: ALBUMIN 3.2 g/dL (3.4-4.8); CALCIUM 9.2 mg/dL (8.4-11.0); CREATININE 0.48 mg/dL (0.55-1.30); POTASSIUM 4.4 mmol/L (3.5-5.1); TOTAL BILIRUBIN 0.8 mg/dL (0.0-1.0)
[2023-06-20] MEDS ORDERED: FURO-149 PO (16:36)
[2023-06-20] MEDS ORDERED: LEVE500T9 PO (16:36)
[2023-06-20] MEDS ORDERED: ASA81 PO (16:36)
[2023-06-20] MEDS ORDERED: levETIRAcetam 500 MG TABLET PO SCH (21:00)
[2023-06-21] MEDS ORDERED: FUROSEMIDE 40 MG TABLET PO SCH (09:00)
== END 2023-06-20 20:15 | DRG 720 ==
LOC: SED 09:58 → SIC 13:10 → SMU 06-16 17:45 → STU 06-17 18:36 → SMU 06-19 11:59
PROVIDERS: ADMIT Preventive Medicine Preventive Medicine/Occupational Environmental Medicine; ATTEND Preventive Medicine Preventive Medicine/Occupational Environmental Medicine
PROC: 5A1955Z Respiratory Ventilation, Greater than 96 Consecutive Hours (ICD-10-PCS; principal; 2023-06-02)
PROC: 0BH17EZ Insertion of Endotracheal Airway into Trachea, Via Natural or Artificial Opening (ICD-10-PCS; 2023-06-02)
PROC: 02HV33Z Insertion of Infusion Device into Superior Vena Cava, Percutaneous Approach (ICD-10-PCS; 2023-06-02)
PROC: B548ZZA Ultrasonography of Superior Vena Cava, Guidance (ICD-10-PCS; 2023-06-02)
PROC: 4A00X4Z Measurement of Central Nervous Electrical Activity, External Approach (ICD-10-PCS; 2023-06-03)
PROC: 5A09357 Assistance with Respiratory Ventilation, Less than 24 Consecutive Hours, Continuous Positive Airway Pressure (ICD-10-PCS; 2023-06-14)
PROC: 5A09357 Assistance with Respiratory Ventilation, Less than 24 Consecutive Hours, Continuous Positive Airway Pressure (ICD-10-PCS; 2023-06-15)
PROC: 05H933Z Insertion of Infusion Device into Right Brachial Vein, Percutaneous Approach (ICD-10-PCS; 2023-06-15)
PROC: B54MZZA Ultrasonography of Right Upper Extremity Veins, Guidance (ICD-10-PCS; 2023-06-15)
PROC: 5A09357 Assistance with Respiratory Ventilation, Less than 24 Consecutive Hours, Continuous Positive Airway Pressure (ICD-10-PCS; 2023-06-16)
DX: A41.9 Sepsis, unspecified organism (principal); J96.01 Acute respiratory failure with hypoxia; R65.21 Severe sepsis with septic shock; J69.0 Pneumonitis due to inhalation of food and vomit; E43 Unspecified severe protein-calorie malnutrition; G93.41 Metabolic encephalopathy; G93.1 Anoxic brain damage, not elsewhere classified; N17.9 Acute kidney failure, unspecified; D69.6 Thrombocytopenia, unspecified; E83.39 Other disorders of phosphorus metabolism; J13 Pneumonia due to Streptococcus pneumoniae; I42.0 Dilated cardiomyopathy; E83.51 Hypocalcemia; E87.1 Hypo-osmolality and hyponatremia; E88.09 Other disorders of plasma-protein metabolism, not elsewhere classified; M62.82 Rhabdomyolysis; N12 Tubulo-interstitial nephritis, not specified as acute or chronic; G40.909 Epilepsy, unspecified, not intractable, without status epilepticus; I13.0 Hypertensive heart and chronic kidney disease with heart failure and stage 1 through stage 4 chronic kidney disease, or unspecified chronic kidney disease; I50.9 Heart failure, unspecified; N18.30 Chronic kidney disease, stage 3 unspecified; E87.6 Hypokalemia; N39.0 Urinary tract infection, site not specified; J44.0 Chronic obstructive pulmonary disease with (acute) lower respiratory infection; R47.01 Aphasia; R13.10 Dysphagia, unspecified; D75.1 Secondary polycythemia; D75.839 Thrombocytosis, unspecified; D72.829 Elevated white blood cell count, unspecified; Z88.0 Allergy status to penicillin; Z79.899 Other long term (current) drug therapy; Z99.11 Dependence on respirator [ventilator] status; Z87.01 Personal history of pneumonia (recurrent); Z68.33 Body mass index [BMI] 33.0-33.9, adult; Z43.1 Encounter for attention to gastrostomy
CPT/HCPCS: 36415; 36600; 70450-TC; 71045; 71275; 76376; 80048; 80053; 80164; 80202; 80307; 81000; 81001; 81015; 82009; 82140; 82550; 82553; 82800-TC; 82803; 82962; 83605; 83735; 83880; 84100; 84484; 85025; 85610-TC; 85651-TC; 85730-TC; 87040; 87081; 92610-GN; 93005; 93306; 94002; 94003; 94640; 94660; 94760; 95816; 99291; G0378; G0480; G0481; G0482; J0330; J0360; J0456; J0692; J0696; J1030; J1940; J1953; J2060; J2250; J2270; J2310; J2405; J2704; J3010; J3370; J3490; J7050; J7060; Q9967